=== PATIENT | female | born 1955 | race Caucasian/White ===

== ENCOUNTER → 2017-03-12 | Outpatient (CLI) | payer OTHER ==
[2017-03-12 08:29] LABS: Basophils % (A) 1 %; CH 30.7; CHCM 33.1; Eosinophils # (A) 0.2 k/uL (0-0.7); Eosinophils % (A) 3 %; HCT 45.6 % (34.0-46.0); HDW 2.66; HGB 14.4 gm/dL (11.4-16.0); Luc % (Auto) 1; Lymphocytes % (A) 27 %; MCH 29.4 pg (25.0-35.0); MCHC 31.5 g/dL (31.0-37.0); MCV 93.2 fL (80.0-100.0); Mean Platelet Volume 7.7; Monocytes # (A) 0.3 k/uL (0-1.0); Monocytes % (A) 4 %; Neutrophils # (A) 4.8 k/uL (1.3-7.7); Neutrophils % (A) 65 %; RDW 14.1 % (11.5-15.5); WBC 7.4 k/uL (3.8-10.6); WBC (Perox) 7.49
[2017-03-12 09:06] LABS: ALT 30 U/L (9-52); AST 20 U/L (14-36); Alkaline Phosphatase 83 U/L (38-126); Anion Gap 7 mmol/L; Blood Urea Nitrogen 12 mg/dL (7-17); Calcium 9.2 mg/dL (8.4-10.2); Carbon Dioxide 30 mmol/L (22-30); Chloride 106 mmol/L (98-107); Cholesterol 177 mg/dL (<200); Glucose 90 mg/dL (74-99); HDL Cholesterol 44 mg/dL (40-60); Non-African American GFR(MDRD) >60 (>60 ml/min/1.73 sqM); Potassium 4.7 mmol/L (3.5-5.1); Sodium 143 mmol/L (137-145); Total Bilirubin 0.3 mg/dL (0.2-1.3); Total Protein 6.8 g/dL (6.3-8.2)
[2017-03-12 09:50] LABS: Hepatitis C Virus IgG Ab Negative (Negative); Hepatitis C Virus IgG Index 0.06
--- NOTE | 2017-03-14 08:25 | MM ---
Reason for exam: screening (asymptomatic). Last mammogram was performed 1 year and 1 month ago. History: Patient is postmenopausal and had first child at age 31. Took hormonal contraceptives for 10 years. Physical Findings: A clinical breast exam by your physician is recommended on an annual basis and results should be correlated with mammographic findings. MG 3D Screening Mammo W/Cad Bilateral CC and MLO view(s) were taken. Prior study comparison: February 21, 2016, bilateral MG 3d screening mammo w/cad. December 24, 2014, bilateral MG screening mammo w CAD. The breast tissue is heterogeneously dense. This may lower the sensitivity of mammography. There is chronic nodularity bilaterally. No significant changes when compared with prior studies. ASSESSMENT: Benign, BI-RAD 2 RECOMMENDATION: Routine screening mammogram of both breasts in 1 year.
== END | disposition home or self-care (01) ==
LOC: RADMAMWWP 07:34
PROVIDERS: ATTEND Internal Medicine
DX: Z12.31 Encounter for screening mammogram for malignant neoplasm of breast (principal); Z13.9 Encounter for screening, unspecified; E55.9 Vitamin D deficiency, unspecified; E66.9 Obesity, unspecified
CPT/HCPCS: 86803; 80061; 80053; 84443; 85025; 82306; 77063; 36415; G0202

== ENCOUNTER → 2018-03-29 | Outpatient (CLI) | payer BC ==
[2018-03-29 07:37] LABS: Basophils # (A) 0.1 k/uL (0-0.2); Basophils % (A) 1 %; Eosinophils # (A) 0.3 k/uL (0-0.7); Eosinophils % (A) 4 %; HCT 45.5 % (34.0-46.0); HGB 14.6 gm/dL (11.4-16.0); Lymphocytes # (A) 2.1 k/uL (1.0-4.8); Lymphocytes % (A) 28 %; MCH 28.9 pg (25.0-35.0); MCHC 32.1 g/dL (31.0-37.0); Mean Platelet Volume 7.1; Monocytes # (A) 0.4 k/uL (0-1.0); Monocytes % (A) 5 %; Neutrophils # (A) 4.7 k/uL (1.3-7.7); Neutrophils % (A) 61 %; Platelet Count 256 k/uL (150-450); RBC 5.05 m/uL (3.80-5.40); RDW 13.8 % (11.5-15.5); WBC 7.6 k/uL (3.8-10.6)
[2018-03-29 08:05] LABS: ALT 29 U/L (9-52); AST 20 U/L (14-36); Albumin 3.6 g/dL (3.5-5.0); Alkaline Phosphatase 67 U/L (38-126); Anion Gap 6 mmol/L; Blood Urea Nitrogen 14 mg/dL (7-17); Calcium 9.1 mg/dL (8.4-10.2); Carbon Dioxide 29 mmol/L (22-30); Chloride 106 mmol/L (98-107); Cholesterol 186 mg/dL (<200); Glucose 104 mg/dL (74-99); HDL Cholesterol 45 mg/dL (40-60); LDL Cholesterol,Calculated 117 mg/dL (0-99); Potassium 4.6 mmol/L (3.5-5.1); Sodium 141 mmol/L (137-145); Total Bilirubin 0.5 mg/dL (0.2-1.3); Total Protein 6.8 g/dL (6.3-8.2); Triglycerides 118 mg/dL (<150)
--- NOTE | 2018-04-02 08:44 | MM ---
Reason for exam: screening (asymptomatic). Last mammogram was performed 1 year and 1 month ago. History: Patient is postmenopausal and had first child at age 31. Took hormonal contraceptives for 10 years. Physical Findings: A clinical breast exam by your physician is recommended on an annual basis and results should be correlated with mammographic findings. MG 3D Screening Mammo W/Cad Bilateral CC and MLO view(s) were taken. Prior study comparison: March 12, 2017, bilateral MG 3d screening mammo w/cad. February 21, 2016, bilateral MG 3d screening mammo w/cad. The breast tissue is heterogeneously dense. This may lower the sensitivity of mammography. There is chronic nodularity bilaterally. Asymmetric density lateral posterior left breast appears more defined and incompletely disperses on 3D. ASSESSMENT: Incomplete: need additional imaging evaluation, BI-RAD 0 RECOMMENDATION: Special view mammogram of the left breast. If lesion persists on supplemental views, image directed ultrasound is recommended. [facility] will attempt to contact patient to return for supplemental views and ultrasound if indicated.
== END | disposition home or self-care (01) ==
LOC: RADMAMWWP 07:19
PROVIDERS: ATTEND Internal Medicine
DX: Z12.31 Encounter for screening mammogram for malignant neoplasm of breast (principal); Z00.00 Encounter for general adult medical examination without abnormal findings; N95.1 Menopausal and female climacteric states; E55.9 Vitamin D deficiency, unspecified
CPT/HCPCS: 36415; 77063; 77067; 80053; 80061; 82306; 85025

== ENCOUNTER → 2018-04-05 | Outpatient (CLI) | payer BC ==
--- NOTE | 2018-04-08 07:54 | MM ---
Reason for exam: additional evaluation requested from abnormal screening. Last mammogram was performed less than 1 month ago. History: Patient is postmenopausal and had first child at age 31. Took hormonal contraceptives for 10 years. Physical Findings: Nurse did not find any significant physical abnormalities on exam. MG 3D Work Up W/Cad LT Spot compression CC, spot compression MLO, and ML view(s) were taken of the left breast. Prior study comparison: March 29, 2018, bilateral MG 3d screening mammo w/cad. March 12, 2017, bilateral MG 3d screening mammo w/cad. Nodular density upper outer left breast, 11cm from nipple. These results were verbally communicated with the patient and result sheet given to the patient on 04/05/18. ASSESSMENT: Incomplete: need additional imaging evaluation, BI-RAD 0 RECOMMENDATION: Ultrasound of the left breast.
--- NOTE | 2018-04-08 07:55 | USB ---
Reason for exam: additional evaluation requested from abnormal screening. History: Patient is postmenopausal and had first child at age 31. Took hormonal contraceptives for 10 years. US Breast Workup Limited LT Left limited breast ultrasound including focal area of concern, retroareolar and axilla demonstrates no cystic or solid lesion seen. These results were verbally communicated with the patient and result sheet given to the patient on 04/05/18. ASSESSMENT: Negative, BI-RAD 1 RECOMMENDATION: Return to routine screening mammogram schedule for both breasts.
== END | disposition home or self-care (01) ==
LOC: RADMAMWWP 13:53
PROVIDERS: ATTEND Internal Medicine
DX: R92.8 Other abnormal and inconclusive findings on diagnostic imaging of breast (principal)
CPT/HCPCS: 77061; 77065

== ENCOUNTER → 2018-04-29 | Outpatient (CLI) | payer BC ==
--- NOTE | 2018-04-29 16:12 | XR ---
Left foot and left calcaneus HISTORY: Pain, bursitis, Achilles bursitis or tendinitis 2 views of the left foot and 2 views of the left calcaneus submitted. There is a plantar calcaneus spur. Bone mineralization and alignment are maintained. Degenerative rohan nge present at the first metatarsophalangeal joint. IMPRESSION: Plantar calcaneal spur.
--- NOTE | 2018-04-29 16:28 | US ---
EXAMINATION TYPE: Ultrasound MSK left ankle, Achilles tendon DATE OF EXAM: 04/29/2018 COMPARISON: NONE CLINICAL HISTORY: 62-year-old female M76.62 Achilles bursitis or tendinitis,. TECHNIQUE: Multiple sonographic images of the Achilles tendon were obtained. FINDINGS: There is moderate thickening and heterogeneity of the distal Achilles tendon with bony irregularity a nd increased adenopathy at the Achilles insertion. Tiny 5 mm calcification involving the insertional fibers is also noted. There is hyperemia involving some of the more hypoechoic regions with suggestio n of a tiny 2 to 3 mm intrasubstance tear. No large or retracted tear is identified. Mild synovial p roliferation and hyperemia in the retrocalcaneal bursa. IMPRESSION: 1. Moderate insertional Achilles tendinosis with hyperemia suggesting active inflammation. A tiny 2 t o 3 mm intrasubstance tear may be present. No sizable tear is seen. 2. Given a 5 mm calcification involving the insertional fibers and mild synovitis of the retrocalcane al bursa, correlate to exclude gout as a possible etiology.
== END | disposition home or self-care (01) ==
LOC: RADUSWWP 10:40
PROVIDERS: ATTEND Podiatrist Primary Podiatric Medicine
DX: M76.62 Achilles tendinitis, left leg (principal); M65.872 Other synovitis and tenosynovitis, left ankle and foot; M77.32 Calcaneal spur, left foot

== ENCOUNTER → 2019-04-23 | Outpatient (CLI) | payer BC ==
[2019-04-23 08:35] LABS: ALT 27 U/L (9-52); AST 24 U/L (14-36); African American GFR (CKD) >90 (>60 ml/min/1.73 sqM); Albumin 4.1 g/dL (3.5-5.0); Alkaline Phosphatase 75 U/L (38-126); Anion Gap 9 mmol/L; Blood Urea Nitrogen 16 mg/dL (7-17); Calcium 9.7 mg/dL (8.4-10.2); Carbon Dioxide 31 mmol/L (22-30); Chloride 102 mmol/L (98-107); Cholesterol 195 mg/dL (<200); Glucose 104 mg/dL (74-99); HDL Cholesterol 44 mg/dL (40-60); LDL Cholesterol,Calculated 126 mg/dL (0-99); Potassium 4.6 mmol/L (3.5-5.1); Sodium 142 mmol/L (137-145); Total Bilirubin 0.8 mg/dL (0.2-1.3); Total Protein 7.5 g/dL (6.3-8.2); Triglycerides 124 mg/dL (<150)
[2019-04-23 08:38] LABS: Basophils # (A) 0.1 k/uL (0-0.2); Basophils % (A) 1 %; Eosinophils # (A) 0.2 k/uL (0-0.7); Eosinophils % (A) 2 %; HCT 48.5 % (34.0-46.0); HGB 14.9 gm/dL (11.4-16.0); Lymphocytes # (A) 2.2 k/uL (1.0-4.8); Lymphocytes % (A) 28 %; MCHC 30.8 g/dL (31.0-37.0); MCV 94.1 fL (80.0-100.0); Mean Platelet Volume 7.5; Monocytes # (A) 0.4 k/uL (0-1.0); Monocytes % (A) 5 %; Neutrophils # (A) 4.9 k/uL (1.3-7.7); Neutrophils % (A) 62 %; Platelet Count 301 k/uL (150-450); RBC 5.16 m/uL (3.80-5.40); RDW 13.6 % (11.5-15.5); WBC 7.9 k/uL (3.8-10.6)
[2019-04-23 11:04] LABS: Appearance,Urine Cloudy (Clear); Bacteria,Urine Rare /hpf; Bilirubin,Urine Negative (Negative); Blood,Urine Negative (Negative); Color,Urine Yellow; Glucose,Urine (UA) Negative (Negative); Ketones,Urine Negative (Negative); Leukocyte Esterase,Urine Negative (Negative); Mucus,Urine Rare /hpf; Nitrite,Urine Negative (Negative); PH, Urine 5.5 (5.0-8.0); Protein,Urine Negative (Negative); RBC,Urine 2 /hpf (0-5); Specific Gravity,Urine 1.019 (1.001-1.035); Squamous Epithelial Cell,Urine 33 /hpf (0-4); Urobilinogen,Urine <2.0 mg/dL (<2.0); WBC,Urine 3 /hpf (0-5)
--- NOTE | 2019-04-24 09:17 | MM ---
Reason for exam: screening (asymptomatic). Last mammogram was performed 1 year and 1 month ago. History: Patient is postmenopausal and had first child at age 31. Took hormonal contraceptives for 10 years. Physical Findings: A clinical breast exam by your physician is recommended on an annual basis and results should be correlated with mammographic findings. MG 3D Screening Mammo W/Cad Bilateral CC and MLO view(s) were taken. Prior study comparison: April 05, 2018, left breast MG 3d work up w/cad LT. March 29, 2018, bilateral MG 3d screening mammo w/cad. The breast tissue is heterogeneously dense. This may lower the sensitivity of mammography. Finding: There are grouped/clustered calcifications in the middle, posterior, central position of the left breast. There is a chronic nodularity bilaterally. New finding and increase in number of calcifications since April 05, 2018 and March 29, 2018. ASSESSMENT: Incomplete: need additional imaging evaluation, BI-RAD 0 RECOMMENDATION: Special view mammogram of the left breast. [facility] will attempt to contact patient to return for supplemental views.
== END | disposition home or self-care (01) ==
LOC: RADMAMWWP 06:51
PROVIDERS: ATTEND Internal Medicine
DX: Z12.31 Encounter for screening mammogram for malignant neoplasm of breast (principal); Z00.00 Encounter for general adult medical examination without abnormal findings; E55.9 Vitamin D deficiency, unspecified; E66.9 Obesity, unspecified
CPT/HCPCS: 36415; 77063; 77067; 80053; 80061; 81001; 82306; 84443; 85025

== ENCOUNTER → 2019-05-12 | Outpatient (CLI) | payer BC ==
--- NOTE | 2019-05-12 11:30 | MM ---
Reason for exam: additional evaluation requested from abnormal screening. Last mammogram was performed 1 month ago. History: Patient is postmenopausal and had first child at age 31. Took hormonal contraceptives for 10 years. Physical Findings: Nurse did not find any significant physical abnormalities on exam. MG 3D Work Up W/Cad LT CC with magnification, LM with magnification, and LM view(s) were taken of the left breast. Prior study comparison: April 23, 2019, bilateral MG 3d screening mammo w/cad. April 05, 2018, left breast MG 3d work up w/cad LT. The breast tissue is heterogeneously dense. This may lower the sensitivity of mammography. Finding: There are indeterminate calcifications in the upper quadrant, central position of the left breast. These results were verbally communicated with the patient and result sheet given to the patient on 05/12/19. ASSESSMENT: Suspicious, BI-RAD 4 RECOMMENDATION: Stereotactic core biopsy of the left breast. Called Dr. Abarca's office with mammographic findings and has scheduled an appointment for the patient for 06/20/19 at 1:[address] Burrell. Biopsy scheduled for 06/27/19 at 8:00. PRELIMINARY REPORT CALLED AND FAXED TO DR. BURRELL ON 05/12/19.
== END | disposition home or self-care (01) ==
LOC: RADMAMWWP 08:46
PROVIDERS: ATTEND Internal Medicine
DX: R92.8 Other abnormal and inconclusive findings on diagnostic imaging of breast (principal)
CPT/HCPCS: 77061; 77065

== ENCOUNTER → 2019-06-20 | Outpatient (CLI) | payer MEDICARE ==
[2019-06-20 13:17] VITALS: BP 152/87; PULSE 68; RESP 18; TEMP 98
--- NOTE | 2019-06-20 13:52 | P.GSHP ---
History of Present Illness H&P Date: 06/20/19 Chief Complaint: mammographic abnormality left breast Yary is a 64-year-old white female who presents for breast examination. She is seen in consultation for Dr. Giovanny Hendricks. She underwent a bilateral mammogram on [id number] this revealed some calcifications in the left breast for which additional views were recommended. Additional views were obtained on 2818. This revealed indeterminate calcifications in the upper quadrant central position of the left breast. These were considered suspicious BIRADS 4 and stereotactic core biopsy was recommended. Patient herself does not feel any masses or nodules for which she is concerned in either breast. No nipple discharge or skin changes. No recent history of trauma or infection in the breast. Family History: paternal grandmother: colon cancer Hormonal History: menarche: 10 , breast fed: no, age at : 31 menopause: 47 BCP: 3 years, hormones: none Past Surgical History: gallbladder rhinoplasty Medical History: none Social History: smoke: none alcohol: wine weekly drugs: none - Constitutional Constitutional: Denies chills, Denies fever - EENT Comment: retinal surgery, floater Eyes: denies blurred vision, denies pain Ears: deny: decreased hearing, tinnitus Ears, nose, mouth and throat: Denies headache, Denies sore throat - Breasts Breasts: bilateral: as per HPI - Cardiovascular Cardiovascular: Denies chest pain, Denies shortness of breath - Respiratory Respiratory: Denies cough, Denies 7 - Gastrointestinal Gastrointestinal: Denies abdominal pain, Denies diarrhea, Denies nausea, Denies vomiting - Genitourinary (Female) Genitourinary: Denies dysuria, Denies hematuria - Menstruation Menstruation: Reports postmenopausal - Musculoskeletal Musculoskeletal: Denies myalgias - Integumentary Integumentary: Denies pruritus, Denies rash - Neurological Neurological: Denies numbness, Denies weakness - Psychiatric Psychiatric: Denies anxiety, Denies depression - Endocrine Endocrine: Denies fatigue, Denies weight change - Hematologic/Lymphatic Comment: none - Allergic/Immunologic Allergic/Immunologic: Reports as per HPI Past Medical History History of Any Multi-Drug Resistant Organisms: None Reported Smoking Status: Never smoker Medications and Allergies Home Medications Medication Instructions Recorded Confirmed Type Calcium Carbonate [Calcium] 1,200 mg PO DAILY 06/20/19 06/20/19 History Cholecalciferol (Vitamin D3) 2,000 unit PO DAILY 06/20/19 06/20/19 History [Vitamin D3] Omeprazole [PriLOSEC] 10 mg PO DAILY 06/20/19 06/20/19 History Turmeric Root Extract [Turmeric] 1,000 mg PO DAILY 06/20/19 06/20/19 History Allergies Allergy/AdvReac Type Severity Reaction Status Date / Time No Known Allergies Allergy Verified 06/20/19 13:18 Surgical - Exam Vital Signs Temp Pulse Resp BP Pulse Ox 98.0 F 68 18 152/87 98 06/20/19 13:13 06/20/19 13:13 06/20/19 13:13 06/20/19 13:13 06/20/19 13:13 BMI 34.1 - General well developed, well nourished, no distress - Eyes normal ocular movement - ENT normal pinna, no hearing loss, no congestion - Neck no masses, trachea midline, no lymphadectomy - Respiratory normal expansion, normal respiratory effort, clear to auscultation - Cardiovascular Rhythm: regular Heart Sounds: normal: S1, S2 - Abdomen Abdomen: soft, non tender, no guarding, no rigid, no rebound - Integumentary normal turgor - Neurologic no disoriented, no combative - Musculoskeletal normal gait, normal posture - Psychiatric oriented to time, oriented to person, oriented to place, speech is normal, memory intact breast exam: Bra 44D grade 3 ptosis right breast: Multiple positional exam no dominant masses or nodules of concern, no nipple discharge of concern Right axilla: No adenopathy of concern Left breast: Multi-positional exam left breast is slightly larger than the right breast, there is increased fullness in the upper quadrant area without a discrete mass Left axilla: No adenopathy of concern Results mammogram results reviewed Assessment and Plan Assessment: Impression: 1. Normal mammogram left breast 2. Fibrocystic breast changes 3. Asymmetry of the breast left slightly larger than the right 4. Fullness left breast upper quadrant area 5. Family history of cancer, paternal grandmother Plan: 1. Sterotactic core biopsy left breast 2. Depending on results of stereotactic core biopsy may consider FNA of the area of fullness in the left breast 3. Valium pre-op as patient anxious Risk and benefits of procedure discussed with the patient she wishes to proceed and this will be performed in the near future Encounter 30 minutes, > 50% of time planning and counselling Time with Patient: Greater than 30
== END ==
LOC: WWCWWP 12:39
PROVIDERS: ATTEND Surgery
DX: Z53.9 Procedure and treatment not carried out, unspecified reason (principal)

== ENCOUNTER → 2019-06-27 | Day surgery (SDC) | payer MEDICARE ==
[2019-06-27 07:25] VITALS: RESP 16; TEMP 97.8
--- NOTE | 2019-06-27 08:56 | P.PCN ---
Date of Procedure: 06/27/19 Preoperative Diagnosis: Microcalcifications of concern upper outer quadrant of the left breast Postoperative Diagnosis: Same Procedure(s) Performed: Left breast stereotactic core biopsy Anesthesia: local Surgeon: Rhiannon Burrell Estimated Blood Loss (ml): 0 Pathology: other (Breast tissue with microcalcifications noted on radiograph specimen) Condition: stable Disposition: same day Indications for Procedure: Indeterminate microcalcifications upper Outer quadrant left breast Operative Findings: Microcalcifications in specimen Description of Procedure: The patient is a 64-year-old white female who was noted on a mammogram to have indeterminate microcalcifications in the upper outer quadrant the central position of the left breast. It was recommended she undergo a stereotactic core biopsy. Risks and benefits of the procedure were discussed with the patient and she wished to proceed. The patient was taken to the stereotactic core biopsy removed and positioned on the lower abdomen table. A supervisor slashing department film was obtained and the area of concern was identified. This was done from a medial to lateral approach. The lesion was targeted. The breast was prepped using Betadine. 25 mL of 1% lidocaine 15 of which had epinephrine were used to anesthetize the area of concern. The needle was driven to the correct coordinates. The needle was fired. Post fire films revealed the needle to be in the correct location. 10 core biopsies were obtained. 3 at the 6 o'clock position. Radiograph of the specimen revealed the calcifications of concern had been sampled. A secure-willis Top-clothes marker was placed. Radiograph revealed the marker was in the correct location. The patient tolerated the procedure in stable condition. The specimen was sent for pathology. The patient will follow with Dr. Toussaint next week.
[2019-06-27 09:24] VITALS: BP 115/71; PULSE 61
--- NOTE | 2019-06-27 12:45 | MM ---
EXAMINATION TYPE: MG stereo VAD BX LT DATE OF EXAM: 06/27/2019 COMPARISON: 05/12/2019 CLINICAL HISTORY: Indeterminate left breast calcifications for which left breast stereotactic guided biopsy was recommended. TECHNIQUE: Stereotactic guided core biopsy of left breast. FINDINGS: The procedure of stereotactic guided core biopsy was explained to the patient. Benefits, alternatives, and risks were discussed. An informed consent was then obtained. Preprocedural timeout was performed. The shortness pathway for biopsy was chosen to approach the 4 mm calcifications in the upper inner quadrant of the left breast. Shortness pathway was medial to lateral approach. I performed the localization, then surgeon, Dr. Norbert Baltazar performed the remainder of the procedure. A vacuum assisted biopsy gun was used to obtain multiple core samples. The patient tolerated the procedure well without any immediate complication. The patient was kept in the radiology department for short stay after the procedure and then discharged home in stable condition. Targeted calcifications are identified in specimen mammogram. Post biopsy mammogram shows the clip to 5 cm lateral to the expected position relative to the targeted area of concern on the preprocedure images. IMPRESSION: SUCCESSFUL, UNCOMPLICATED STEREOTACTIC GUIDED CORE BIOPSY OF AN INDETERMINATE 4 MM GROUP OF CALCIFICATIONS IN THE UPPER INNER QUADRANT OF THE LEFT BREAST, FULL PATHOLOGY RESULTS TO FOLLOW. BIOPSY MARKER MIGRATION IS NOTED. Pathology Results: Benign LEFT BREAST LESION, NEEDLE CORE BIOPSIES: Benign adipose tissue and breast parenchyma with fibroadenomatoid changes and prominent coarse intraductal mineralizations. Recommendation Follow up mammogram of the left breast in 6 months. HANNA
== END ==
LOC: RADMAMWWP 07:02
PROVIDERS: ATTEND Surgery
DX: D24.2 Benign neoplasm of left breast (principal)
CPT/HCPCS: 88305; 19081; A4648; J2001

== ENCOUNTER → 2019-07-03 | Outpatient (CLI) | payer MEDICARE ==
[2019-07-03 09:11] VITALS: BP 153/88; PULSE 84; RESP 18; TEMP 98
--- NOTE | 2019-07-03 09:41 | P.PN ---
Subjective Progress Note Date: 07/03/19 Principal diagnosis: Yary is a 64-year-old white female status post stereotactic core biopsy and [id number]. Pathology revealed benign adipose tissue and breast parenchyma with fibroadenomatoid changes and prominent course intraductal mineralization's. No evidence of cancer or atypia was seen. The patient states tolerated the procedure in stable condition. She has no complaints at this time. Objective - Vital Signs Vital signs: Vital Signs Temp 98.0 F 07/03/19 09:06 Pulse 84 07/03/19 09:06 Resp 18 07/03/19 09:06 BP 153/88 07/03/19 09:06 Pulse Ox 100 07/03/19 09:06 Intake & Output 07/02/19 07/03/19 07/03/19 18:59 06:59 18:59 Weight 92.986 kg - Exam BMI 34.1 - Constitutional General appearance: Present: obese - EENT Eyes: Present: EOMI ENT: Present: hearing grossly normal - Neck Neck: Present: normal ROM - Respiratory Respiratory: bilateral: CTA - Cardiovascular Rhythm: regular Heart sounds: normal: S1, S2 - Integumentary Integumentary Comment(s): biopsy site left breast upper inner quadrant area, clean and dry, no evidence of infection, no hematoma Integumentary: Present: normal turgor - Musculoskeletal Musculoskeletal: Present: gait normal - Psychiatric Psychiatric: Present: A&O x's 3, appropriate affect, intact judgment & insight Assessment and Plan Assessment: impression: 1. Benign stereotactic core biopsy left breast Plan: 1. Repeat left breast mammogram and physician exam in 6 months Cc: Dr. Abarca encounter: approximately 15 minutes, > 50% in planning and scheduling. Time with Patient: Less than 30
== END ==
LOC: WWCWWP 08:46
PROVIDERS: ATTEND Surgery
DX: Z53.9 Procedure and treatment not carried out, unspecified reason (principal)

== ENCOUNTER → 2019-12-05 | Outpatient (CLI) | payer MEDICARE ==
--- NOTE | 2019-12-09 07:48 | MM ---
Reason for exam: follow-up at short interval from prior study. Last mammogram was performed 7 months ago. History: Patient is postmenopausal and had first child at age 31. Benign MG stereo VAD BX LT of the left breast, June 27, 2019. Took hormonal contraceptives for 10 years. Physical Findings: Nurse did not find any significant physical abnormalities on exam. MG 3D Diag Mammo W/Cad LT CC and MLO view(s) were taken of the left breast. Prior study comparison: May 12, 2019, left breast MG 3d work up w/cad LT. April 23, 2019, bilateral MG 3d screening mammo w/cad. The breast tissue is heterogeneously dense. This may lower the sensitivity of mammography. Benign appearing calcifications in the left breast. Left upper outer quadrant middle depth focal asymmetry improves on additional views. Precautionary 6 month follow up recommended. Left post biopsy change. Left biopsy marker migration is again noted. No new suspicious calcifications. These results were verbally communicated with the patient and result sheet given to the patient on 12/05/19. ASSESSMENT: Probably benign, BI-RAD 3 RECOMMENDATION: Follow-up diagnostic mammogram of both breasts in 6 months. Back on schedule.
== END | disposition home or self-care (01) ==
LOC: RADMAMWWP 14:09
PROVIDERS: ATTEND Surgery
DX: R92.8 Other abnormal and inconclusive findings on diagnostic imaging of breast (principal)
CPT/HCPCS: 77065; G0279; 77061

== ENCOUNTER → 2019-12-11 | Outpatient (CLI) | payer MEDICARE ==
[2019-12-11 09:46] VITALS: BP 133/77; PULSE 86; RESP 18; TEMP 98.3
--- NOTE | 2019-12-11 10:34 | P.PN ---
Subjective Progress Note Date: 12/11/19 Principal diagnosis: fibrocystic breast changes Yary is a 64-year-old white female who presents for breast examination. She underwent a bilateral mammogram in April 2019 this revealed some calcifications in the left breast for which additional views were recommended. Additional views were obtained on . This revealed indeterminate calcifications in the upper quadrant central position of the left breast. These were considered suspicious BIRADS 4 and stereotactic core biopsy was recommended. A stero biopsy was done on 06-27-19 which was benign. There is no complaints related to her breast. A recent mammogram was performed on 12-05-19 of the left breast. This revealed benign-appearing calcifications. Left upper outer quadrant middle depth focal asymmetry improved on additional views. Precautionary six-month follow-up was recommended. Bilateral diagnostic mammogram in 6 months. Family History: paternal grandmother: colon cancer Hormonal History: menarche: 10 , breast fed: no, age at : 31 menopause: 47 BCP: 3 years, hormones: none Past Surgical History: gallbladder rhinoplasty Stero biopsy of the left breast Medical History: none Social History: smoke: none alcohol: wine weekly drugs: none - Constitutional Constitutional: Denies chills, Denies fever - EENT Comment: retinal surgery, floater Eyes: denies blurred vision, denies pain Ears: deny: decreased hearing, tinnitus Ears, nose, mouth and throat: Denies headache, Denies sore throat - Breasts Breasts: bilateral: as per HPI - Cardiovascular Cardiovascular: Denies chest pain, Denies shortness of breath - Respiratory Respiratory: Denies cough - Gastrointestinal Gastrointestinal: Denies abdominal pain, Denies diarrhea, Denies nausea, Denies vomiting - Genitourinary (Female) Genitourinary: Denies dysuria, Denies hematuria - Menstruation Menstruation: Reports postmenopausal - Musculoskeletal Musculoskeletal: Denies myalgias - Integumentary Integumentary: Denies pruritus, Denies rash - Neurological Neurological: Denies numbness, Denies weakness - Psychiatric Psychiatric: Denies anxiety, Denies depression - Endocrine Endocrine: Denies fatigue, Denies weight change - Hematologic/Lymphatic Comment: none - Allergic/Immunologic Allergic/Immunologic: seasonal Objective - Vital Signs Vital signs: Vital Signs Temp 98.3 F 12/11/19 09:42 Pulse 86 05/28/20 09:42 Resp 18 12/11/19 09:42 BP 133/77 12/11/19 09:42 Pulse Ox 96 12/11/19 09:42 Intake & Output 12/10/19 12/11/19 12/11/19 18:59 06:59 18:59 Weight 97.522 kg - Exam BMI 35.2 - Constitutional General appearance: Present: average body habitus - EENT Eyes: Present: EOMI ENT: Present: hearing grossly normal - Respiratory Respiratory: bilateral: CTA - Cardiovascular Rhythm: regular Heart sounds: normal: S1, S2 - Gastrointestinal General gastrointestinal: Present: normal bowel sounds, soft - Integumentary Integumentary: Present: normal turgor - Musculoskeletal Musculoskeletal: Present: gait normal - Psychiatric Psychiatric: Present: A&O x's 3, appropriate affect, intact judgment & insight - Additional findings Additional findings: breast exam: BRA: 42C inspection: no nipple inversion, ptosis grade 2 Palpation: Right breast: Multiple positional exam no dominant masses or nodules of concern, fibrocystic changes Right axilla: No adenopathy of concern Left breast: Multi-positional exam no dominant masses or nodules of concern, fibrocystic changes, fullness upper-outer quadrant area no dominant mass Left axilla: No adenopathy of concern Assessment and Plan Assessment: Impression: 1. Fibrocystic breast changes 2. Fullness left breast upper outer quadrant most likely fibrocystic 3. Recent left breast mammogram no discrete lesions of concern benign BIRADS 3 Plan: 1. Repeat bilateral mammogram in 6 months 2. Left breast ultrasound upper outer quadrant area secondary to palpable fullness CC: DR. Giovanny Abarca encounter 20 minutes, > 50% of time in planning and counselling Time with Patient: Less than 30
== END | disposition home or self-care (01) ==
LOC: WWCWWP 09:29
PROVIDERS: ATTEND Surgery
DX: Z53.9 Procedure and treatment not carried out, unspecified reason (principal)

== ENCOUNTER → 2019-12-16 | Outpatient (CLI) | payer MEDICARE ==
--- NOTE | 2019-12-18 09:19 | USB ---
Reason for exam: clinical finding. History: Patient is postmenopausal and had first child at age 31. Benign MG stereo VAD BX LT of the left breast, June 27, 2019. Took hormonal contraceptives for 10 years. Physical Findings: See breast exam from 12/05/19. US Breast Limited LT Left limited breast ultrasound including focal area of concern, retroareolar and axilla demonstrates no cystic or solid lesion seen. No suspicious sonographic finding. These results were verbally communicated with the patient and result sheet given to the patient on 12/16/19. ASSESSMENT: Negative, BI-RAD 1 RECOMMENDATION: Return to routine screening mammogram schedule for both breasts.
== END | disposition home or self-care (01) ==
LOC: RADUSWWP 12:40
PROVIDERS: ATTEND Surgery
DX: R92.8 Other abnormal and inconclusive findings on diagnostic imaging of breast (principal)

== ENCOUNTER → 2019-12-26 | Outpatient (CLI) | payer MEDICARE ==
[2019-12-26 14:20] VITALS: BP 134/82; PULSE 63; RESP 18; TEMP 97.7
--- NOTE | 2019-12-26 14:37 | P.PN ---
Progress Note - Text Progress Note Date: 12/26/19 Yary is a 64-year-old white female who underwent a breast examination and 17614. At that time there was some question of some fullness in the upper outer quadrant of her left breast. She had a bilateral mammogram and 83725 which revealed calcifications in the left breast for which additional views were recommended. This was obtained on 1020 819 in the stereo biopsy was recommended. Stereotactic biopsy was done in 06/1319 which was benign adipose tissue with intraductal mineralization's present. [place] [address] which was benign however precautionary six-month follow-up was recommended. This revealed benign-appearing calcifications in the left [address]. Left upper quadrant middle depth focal asymmetry improved on additional views. An six-month follow-up of both breasts was recommended. On her recent breast exam was felt that there was some increased fullness in the left breast in the upper quadrant ultrasound was recommended. Ultrasound was performed and which was benign BIRADS 1. The patient has no complaints at this time. She will have a repeat bilateral mammogram and physician exam in 6 months. cc: Dr. Abarca encounter 10 minutes
== END | disposition home or self-care (01) ==
LOC: WWCWWP 14:00
PROVIDERS: ATTEND Surgery
DX: Z53.9 Procedure and treatment not carried out, unspecified reason (principal)

== ENCOUNTER → 2020-06-08 | Outpatient (CLI) | payer MEDICARE ==
[2020-06-08 09:17] LABS: HCT 45.6 % (34.0-46.0); MCH 30.3 pg (25.0-35.0); Mean Platelet Volume 7.2; Platelet Count 264 k/uL (150-450); RBC 4.96 m/uL (3.80-5.40); RDW 13.5 % (11.5-15.5); WBC 6.9 k/uL (3.8-10.6)
[2020-06-08 16:00] LABS: African American GFR (CKD) 77.2 (60.0-200.0); Albumin 3.9 g/dL (3.80-4.90); Albumin/Globulin Ratio 1.5 (1.60-3.17); Anion Gap 6.2 mmol/L (4.00-12.00); BUN/Creat Ratio 18.89 Ratio (12.00-20.00); Calcium 9.4 mg/dL (8.7-10.3); Carbon Dioxide 29.8 mmol/L (21.6-31.8); Chol/HDL Ratio 3.96; Globulin 2.6 g/dL (1.6-3.3); LDL Cholesterol,Calculated 120.6 mg/dL (0.0-131.0); Non-African American GFR(CKD) 66.6 (60.0-200.0); Potassium 4.8 mmol/L (3.5-5.5); Total Bilirubin 0.5 mg/dL (0.2-1.2); Total Protein 6.5 g/dL (6.2-8.2); VLDL Calculation 18.4 mg/dL (5.00-40.00)
== END | disposition home or self-care (01) ==
LOC: LABWHC1 08:22
PROVIDERS: ATTEND Family Medicine
DX: Z00.01 Encounter for general adult medical examination with abnormal findings (principal)
CPT/HCPCS: 36415; 80053; 80061; 85027

== ENCOUNTER → 2020-06-08 | Outpatient (CLI) | payer MEDICARE ==
--- NOTE | 2020-06-08 10:33 | MM ---
Reason for exam: additional evaluation requested from prior study. Last mammogram was performed 6 months ago. History: Patient is postmenopausal and had first child at age 31. Benign MG stereo VAD BX LT of the left breast, June 27, 2019. Took hormonal contraceptives for 10 years. Physical Findings: Nurse did not find any significant physical abnormalities on exam. MG 3D Diag Mammo W/Cad MARCELINA Bilateral CC and MLO view(s) were taken. Spot compression CC and ML view(s) were taken of the left breast. Prior study comparison: December 05, 2019, left breast MG 3d diag mammo w/cad LT. May 12, 2019, left breast MG 3d work up w/cad LT. There is chronic nodularity bilaterally. Lateral asymmetric density left CC view at a middle depth incompletely disperses on spot 3D. However, no correlate is seen on the other views. These results were verbally communicated with the patient and result sheet given to the patient on 06/11/20. ASSESSMENT: Incomplete: need additional imaging evaluation, BI-RAD 0 RECOMMENDATION: Ultrasound of the left breast. (upper outer quadrant)
--- NOTE | 2020-06-08 10:35 | USB ---
Reason for exam: additional evaluation requested from abnormal screening. History: Patient is postmenopausal and had first child at age 31. Benign MG stereo VAD BX LT of the left breast, June 27, 2019. Took hormonal contraceptives for 10 years. US Breast Limited LT Left limited breast ultrasound including focal area of concern, retroareolar and axilla demonstrates a 0.6 x 0.4 x 0.5cm oval, hypoechoic lesion at 2 o'clock. Not seen 6 months ago. Biopsy recommended. May correspond to the mammographic finding. Scanned 12-3 o'clock. These results were verbally communicated with the patient and result sheet given to the patient on 06/08/20. ASSESSMENT: Suspicious, BI-RAD 4 RECOMMENDATION: Ultrasound core biopsy of the left breast. Called office with mammographic findings and has scheduled an appointment for the patient for 06/24/20 at 12:[address] Burrell. Biopsy scheduled for 06/16/20 at 1:00. PRELIMINARY REPORT CALLED AND FAXED TO DR. BURRELL ON 06/08/20.
== END | disposition home or self-care (01) ==
LOC: RADMAMWWP 08:25
PROVIDERS: ATTEND Surgery
DX: R92.8 Other abnormal and inconclusive findings on diagnostic imaging of breast (principal)
CPT/HCPCS: 77066; 76642; G0279; 77062

== ENCOUNTER → 2020-06-16 | Day surgery (SDC) | payer MEDICARE ==
[2020-06-16 12:23] VITALS: TEMP 98
[2020-06-16 13:37] VITALS: BP 107/70; PULSE 65; RESP 18
--- NOTE | 2020-06-16 14:01 | USB ---
Ultrasound-guided breast cyst aspiration HISTORY: Abnormal left mammogram Following informed consent the skin overlying a suitable path to the 2:00 breast cyst was localized w ith ultrasound and the overlying skin prepped and draped. Lidocaine used for local anesthesia. 22-gau ge needle was advanced under ultrasound guidance and the cyst was aspirated and collapsed. No evident specimen. Hemostasis achieved. Patient describes some dizziness, transient vasovagal episode was ramona ated conservatively and resolved spontaneously. IMPRESSION: Status post ultrasound guided left breast cyst aspiration, follow-up breast ultrasound so und in 6 months.
== END ==
LOC: RADUSWWP 11:54
PROVIDERS: ATTEND Surgery
DX: N60.02 Solitary cyst of left breast (principal)
CPT/HCPCS: 76942; 19000; J2001

== ENCOUNTER → 2020-12-16 | Outpatient (CLI) | payer MEDICARE | END | disposition home or self-care (01) | LOC: RADUSWWP 08:43 | PROVIDERS: ATTEND Surgery | DX: Z53.9 Procedure and treatment not carried out, unspecified reason (principal) ==

== ENCOUNTER → 2020-12-23 | Outpatient (CLI) | payer MEDICARE ==
[2020-12-23 13:57] VITALS: BP 134/83; PULSE 63; RESP 16; TEMP 97.7
--- NOTE | 2020-12-23 14:08 | P.PN ---
Subjective Progress Note Date: 12/23/20 Principal diagnosis: fibrocystic breast changes Yary is a 65-year-old white female who presents for breast examination. She underwent a bilateral mammogram in April 2019 this revealed some calcifications in the left breast for which additional views were recommended. Additional views were obtained on . This revealed indeterminate calcifications in the upper quadrant central position of the left breast. These were considered suspicious BIRADS 4 and stereotactic core biopsy was recommended. She underwent a stereo biopsy and 250576 this revealed benign adipose tissue and prominent course intraductal mineralization's were present in the specimen. This was felt to be concordant. The patient then had a bilateral mammogram in June 08 and an ultrasound was recommended of the left breast no lesions of concern were noted in the right breast. On ultrasound there was a cystic lesion for which aspiration/biopsy was recommended. This was attempted on and no evidence specimen was present. The patient was then recommended to undergo an ultrasound of the left breast in 6 months. This was performed and 6306 and felt to be benign. Follow-up in 6 months. Patient herself does not feel any masses or nodules for which she is concerned in either breast. No nipple discharge or skin changes. No recent history of trauma or infection in the breast. The patient does not feel any new lumps masses or nodules of concern in either breast. She is not complaining of any breast pain of concern. She is not complaining of any nipple discharge or skin changes. Family History: paternal grandmother: colon cancer Hormonal History: menarche: 10 , breast fed: no, age at : 31 menopause: 47 BCP: 3 years, hormones: none Past Surgical History: gallbladder rhinoplasty Medical History: none Social History: smoke: none alcohol: wine weekly drugs: none - Constitutional Constitutional: Denies chills, Denies fever - EENT Comment: retinal surgery, floater Eyes: denies blurred vision, denies pain Ears: deny: decreased hearing, tinnitus Ears, nose, mouth and throat: Denies headache, Denies sore throat - Breasts Breasts: bilateral: as per HPI - Cardiovascular Cardiovascular: Denies chest pain, Denies shortness of breath - Respiratory Respiratory: Denies cough, - Gastrointestinal Gastrointestinal: Denies abdominal pain, Denies diarrhea, Denies nausea, Denies vomiting - Genitourinary (Female) Genitourinary: Denies dysuria, Denies hematuria - Menstruation Menstruation: Reports postmenopausal - Musculoskeletal Musculoskeletal: Denies myalgias - Integumentary Integumentary: Denies pruritus, Denies rash - Neurological Neurological: Denies numbness, Denies weakness - Psychiatric Psychiatric: Denies anxiety, Denies depression - Endocrine Endocrine: Denies fatigue, Denies weight change - Hematologic/Lymphatic Comment: none - Allergic/Immunologic Allergic/Immunologic: Reports as per HPI Objective - Vital Signs Vital signs: Intake & Output 12/22/20 12/23/20 12/23/20 18:59 06:59 18:59 Weight 95.254 kg - Exam BMI 34.4 - Constitutional General appearance: Present: cooperative - EENT Eyes: Present: EOMI ENT: Present: hearing grossly normal - Neck Neck: Present: normal ROM - Respiratory Respiratory: bilateral: CTA - Cardiovascular Rhythm: regular Heart sounds: normal: S1, S2 - Gastrointestinal General gastrointestinal: Present: soft - Integumentary Integumentary: Present: normal turgor - Musculoskeletal Musculoskeletal: Present: gait normal - Psychiatric Psychiatric: Present: A&O x's 3, appropriate affect, intact judgment & insight - Additional findings Additional findings: Breast exam: BRA 44D inspection: There is prominence on the sternal area of the left chest wall which is a palpable fullness, bilateral grade 3 ptosis Palpation: Right breast: Multiple positional exam fibrocystic changes, no dominant masses or nodules of concern Right axilla: No adenopathy of concern Left breast: Fibrocystic changes increased prominence upper outer quadrant area with no discrete mass Left axilla: No adenopathy of concern Assessment and Plan Assessment: Impression: 1. Asymmetric breasts left breast slightly larger than right breast 2. Fibrocystic breast changes 3. Fullness over the sternal area greatest on the left chest Plan: 1. MRI chest to evaluate fullness over the sternum on the left 2. Repeat bilateral mammogram in 6 months 3. Patient to keep close surveillance on the left breast upper outer quadrant of this changes she will call us sooner at this time there is nothing to warrant a biopsy Cc: Dr. Mohamud
== END ==
LOC: WWCWWP 13:19
PROVIDERS: ATTEND Surgery
DX: N60.11 Diffuse cystic mastopathy of right breast (principal); N60.12 Diffuse cystic mastopathy of left breast; N64.89 Other specified disorders of breast

== ENCOUNTER → 2021-01-04 | Outpatient (CLI) | payer MEDICARE ==
[2021-01-04 13:56] LABS: African American GFR (CKD) >90 (>60 ml/min/1.73 sqM); Blood Urea Nitrogen 15 mg/dL (7-17); Non-African American GFR(CKD) 88 (>60 ml/min/1.73 sqM)
--- NOTE | 2021-01-04 15:44 | CT ---
EXAMINATION TYPE: CT chest w con DATE OF EXAM: 01/04/2021 COMPARISON: None HISTORY: Fullness over sternal area CT DLP: 734 mGycm Automated exposure control for dose reduction was used. CONTRAST: CT scan of the chest is performed with IV Contrast, patient injected with 100 mL of Isovue 300. FINDINGS: LUNGS: There are a few scattered sub the 4 mm pulmonary nodules identified: 2 on the right and 3 on t he left. Follow-up in one year is advised. There is no pleural effusion or pneumothorax seen. The tr acheobronchial tree is patent. MEDIASTINUM: There are no greater than 1 cm hilar or mediastinal lymph nodes. No pericardial effusi on is seen. Thoracic aorta is of normal caliber. The heart is not enlarged. UPPER ABDOMEN: No significant abnormality appreciated. OTHER: Small hiatal hernia seen. IMPRESSION: 1. No evidence for distinct mass or abnormality about the sternum. 2. A few scattered sub-4 mm pulmonary nodules. One year follow-up is recommended.
== END | disposition home or self-care (01) ==
LOC: RADCTMAIN 13:02
PROVIDERS: ATTEND Surgery
DX: R91.8 Other nonspecific abnormal finding of lung field (principal)
CPT/HCPCS: 82565; 84520; 71260; 36415; Q9967

== ENCOUNTER → 2021-06-23 | Outpatient (CLI) | payer MEDICARE ==
--- NOTE | 2021-06-23 15:01 | MM ---
Reason for exam: additional evaluation requested from prior study. Last mammogram was performed 1 year ago. History: Patient is postmenopausal and had first child at age 31. US breast aspiration single LT of the left breast, June 16, 2020. Benign MG stereo VAD BX LT of the left breast, June 27, 2019. Took hormonal contraceptives for 10 years. Physical Findings: Nurse did not find any significant physical abnormalities on exam. MG 3D Diag Mammo W/Cad MARCELINA Bilateral CC and MLO view(s) were taken. Prior study comparison: June 08, 2020, bilateral MG 3d diag mammo w/cad MARCELINA. December 05, 2019, left breast MG 3d diag mammo w/cad LT. The breast tissue is heterogeneously dense. This may lower the sensitivity of mammography. Previous mammotome biopsy in the left breast. There is no discrete abnormality including area of concern. No significant new findings when compared with previous films. These results were verbally communicated with the patient and result sheet given to the patient on 06/23/21. ASSESSMENT: Incomplete: need additional imaging evaluation, BI-RAD 0 RECOMMENDATION: Ultrasound of the left breast.
--- NOTE | 2021-06-23 15:02 | USB ---
Reason for exam: additional evaluation requested from abnormal screening. History: Patient is postmenopausal and had first child at age 31. US breast aspiration single LT of the left breast, June 16, 2020. Benign MG stereo VAD BX LT of the left breast, June 27, 2019. Took hormonal contraceptives for 10 years. US Breast Limited LT Left limited breast ultrasound including focal area of concern, retroareolar and axilla demonstrates a 0.3 x 0.2 x 0.2cm oval, cystic lesion at 2 o'clock. These results were verbally communicated with the patient and result sheet given to the patient on 06/23/21. ASSESSMENT: Benign, BI-RAD 2 RECOMMENDATION: Routine screening mammogram of both breasts in 1 year.
== END | disposition home or self-care (01) ==
LOC: RADMAMWWP 13:29
PROVIDERS: ATTEND Surgery
DX: R92.8 Other abnormal and inconclusive findings on diagnostic imaging of breast (principal); Z78.0 Asymptomatic menopausal state
CPT/HCPCS: 77066; 76642; G0279; 77062

== ENCOUNTER → 2021-06-30 | Outpatient (CLI) | payer MEDICARE ==
[2021-06-30 11:50] VITALS: BP 131/85; PULSE 72; RESP 18; TEMP 98.1
--- NOTE | 2021-06-30 12:10 | P.PN ---
Subjective Progress Note Date: 06/30/21 Principal diagnosis: fibrocystic breast changes fibrocystic breast changes Yary is a 66-year-old white female who presents for breast examination. She underwent a bilateral mammogram in April 2019 this revealed some calcifications in the left breast for which additional views were recommended. Additional views were obtained on . This revealed indeterminate calcifications in the upper quadrant central position of the left breast. These were considered suspicious BIRADS 4 and stereotactic core biopsy was recommended. She underwent a stereo biopsy and [id number] this revealed benign adipose tissue and prominent course intraductal mineralization's were present in the specimen. This was felt to be concordant. The patient then had a bilateral mammogram in June 08, 2020 and an ultrasound was recommended of the left breast no lesions of concern were noted in the right breast. On ultrasound there was a cystic lesion for which aspiration/biopsy was recommended. This was attempted on and no evidence specimen was present. The patient was then recommended to undergo an ultrasound of the left breast in 6 months. This was performed and 6349 and felt to be benign. Follow-up in 6 months. She underwent a left breast mammogram on 06-23-21 which was incomplete and an ultrasound was recommended which was done on 06-23-21 this was benign BIRAD 2 and routine screening of both breast in 6 months recommended. The ;atient does not feel any lumps masses or nodules of concern in her breast. Family History: paternal grandmother: colon cancer Hormonal History: menarche: 10 , breast fed: no, age at : 31 menopause: 47 BCP: 3 years, hormones: none Past Surgical History: gallbladder rhinoplasty Medical History: none Social History: smoke: none alcohol: wine weekly drugs: none - Constitutional Constitutional: Denies chills, Denies fever - EENT Comment: retinal surgery, floater Eyes: denies blurred vision, denies pain Ears: deny: decreased hearing, tinnitus Ears, nose, mouth and throat: Denies headache, Denies sore throat - Breasts Breasts: bilateral: as per HPI - Cardiovascular Cardiovascular: Denies chest pain, Denies shortness of breath - Respiratory Respiratory: Denies cough, - Gastrointestinal Gastrointestinal: Denies abdominal pain, Denies diarrhea, Denies nausea, Denies vomiting - Genitourinary (Female) Genitourinary: Denies dysuria, Denies hematuria - Menstruation Menstruation: Reports postmenopausal - Musculoskeletal Musculoskeletal: Denies myalgias - Integumentary Integumentary: Denies pruritus, Denies rash - Neurological Neurological: Denies numbness, Denies weakness - Psychiatric Psychiatric: Denies anxiety, Denies depression - Endocrine Endocrine: Denies fatigue, Denies weight change - Hematologic/Lymphatic Comment: none - Allergic/Immunologic Allergic/Immunologic: Reports as per HPI Objective - Vital Signs Vital signs: Vital Signs Temp 98.1 F 06/30/21 11:45 Pulse 72 06/30/21 11:45 Resp 18 06/30/21 11:45 BP 131/85 06/30/21 11:45 Pulse Ox 99 06/30/21 11:45 Intake & Output 06/29/21 06/30/21 06/30/21 18:59 06:59 18:59 Weight 95.254 kg - Exam BMI 34.9 - Constitutional General appearance: Present: cooperative - EENT Eyes: Present: EOMI ENT: Present: hearing grossly normal - Neck Neck: Present: normal ROM - Respiratory Respiratory: bilateral: CTA - Cardiovascular Rhythm: regular Heart sounds: normal: S1, S2 - Gastrointestinal General gastrointestinal: Present: soft - Musculoskeletal Musculoskeletal: Present: gait normal - Psychiatric Psychiatric: Present: A&O x's 3, appropriate affect, intact judgment & insight - Additional findings Additional findings: Breast Exam: BRA: 44C inspection: bilateral grade 3 ptosis palpation: right breast: Positional exam fibrocystic changes no dominant masses or nodules of concern Right axilla: No adenopathy of concern Left breast: Multiple positional exam fibrocystic changes fullness in the lateral aspect with no discrete dominant mass or nodule of concern Left axilla: No adenopathy of concern The area of the sternum has some fullness which has been worked up with a computed tomography scan not showing any lesions of concern the computed tomography scan did show a few scattered sub-for millimeter pulmonary nodules and a repeat computed tomography scan in 1 year was recommended this was done and 620 221. Assessment and Plan Assessment: Impression: Asymmetric breasts left slightly larger than the right with slight fullness in the lateral aspect of the left breast Fibrocystic breast changes Follow this over the sternal area greatest towards the area of the left chest which has been worked up and has not had anything noted on computed tomography scan Plan: Computed tomography scan in 6 months with a physician exam at that time Repeat bilateral mammogram in 6 months Patient to keep close surveillance on the left breast upper outer quadrant if this changes she will call us sooner at this time there is nothing which would warrant biopsy CC: Dr. Mohamud
== END ==
LOC: WWCWWP 11:24
PROVIDERS: ATTEND Surgery
DX: N60.12 Diffuse cystic mastopathy of left breast (principal); N60.11 Diffuse cystic mastopathy of right breast; N64.89 Other specified disorders of breast

== ENCOUNTER → 2022-01-05 | Outpatient (CLI) | payer MEDICARE ==
[2022-01-05 08:30] LABS: African American GFR (CKD) >90 (>60 ml/min/1.73 sqM); Blood Urea Nitrogen 15 mg/dL (7-17); Non-African American GFR(CKD) 88 (>60 ml/min/1.73 sqM)
--- NOTE | 2022-01-05 12:55 | CT ---
EXAMINATION TYPE: CT chest w con DATE OF EXAM: 01/05/2022 COMPARISON: CT dated 01/04/2021 HISTORY: Prominence over sternum, follow up CT DLP: 458.1 mGycm Automated exposure control for dose reduction was used. TECHNIQUE: CT scan of the chest is performed with IV Contrast, patient injected with 100 mL of Isovue 300. FINDINGS: LUNGS: Scattered bilateral pulmonary nodules measuring up to 4 mm, stable compared to the previous CT scan consistent with benign nodules and requiring no further follow-up. Grossly unremarkable lungs o therwise. Patent trachea and main bronchi. No pleural effusion. MEDIASTINUM: There are no greater than 1 cm hilar or mediastinal lymph nodes. Coronary arterial calci fications. No gross cardiomegaly. No pericardial effusion is seen. OTHER: Small sliding hiatal hernia. Previous cholecystectomy. Questionable hepatic steatosis. No agg ressive bone lesion. Asymmetrical focal anterior bulge of the inferior left costosternal junction as compared to the right-sided one. This could represent the clinically felt prominence. IMPRESSION: Stable bilateral pulmonary nodules measuring up to 4 mm consistent with benign nodules and require no further follow-up. No aggressive bone lesion. Other findings as described above.
== END | disposition home or self-care (01) ==
LOC: RADCTMAIN 07:52
PROVIDERS: ATTEND Surgery
DX: R91.8 Other nonspecific abnormal finding of lung field (principal)
CPT/HCPCS: 82565; 84520; 71260; 36415; Q9967

== ENCOUNTER → 2022-06-26 | Outpatient (CLI) | payer MEDICARE ==
--- NOTE | 2022-06-27 08:32 | MM ---
Reason for Exam: Screening (asymptomatic). Last screening mammogram was performed 12 month(s) ago. Patient History: Menarche at age 10. First Full-Term at age 31. Late child-bearing (after 30). Postmenopausal. Patient used Hormonal Contraceptives for 10 years. 06/16/2020, Cyst Aspiration on the Left side. 06/27/2019, Benign Core Biopsy on the left side. Risk Values: Marlene 5 year model risk: 3.1%. NCI Lifetime model risk: 9.7%. Prior Study Comparison: 12/05/2019 Left Diagnostic Mammogram, [facility]. 06/08/2020 Bilateral Diagnostic Mammogram, [facility]. 06/23/2021 Bilateral Diagnostic Mammogram, [facility]. Tissue Density: The breast tissue is heterogeneously dense. This may lower the sensitivity of mammography. Findings: Analyzed By CAD. There is no suspicious group of microcalcifications or new suspicious mass in either breast. Overall Assessment: Benign, BI-RAD 2 Management: Screening Mammogram of both breasts in 1 year. A clinical breast exam by your physician is recommended on an annual basis and results should be correlated with mammographic findings. Electronically signed and approved by: Hebert Villalpando M.D. Radiologis
== END | disposition home or self-care (01) ==
LOC: RADMAMWWP 08:32
PROVIDERS: ATTEND Surgery
DX: Z12.31 Encounter for screening mammogram for malignant neoplasm of breast (principal); Z78.0 Asymptomatic menopausal state; Z98.890 Other specified postprocedural states
CPT/HCPCS: 77063; 77067

== ENCOUNTER → 2022-06-30 | Outpatient (CLI) | payer MEDICARE ==
[2022-06-30 09:44] VITALS: BP 143/88; PULSE 87; RESP 17; TEMP 98.9
--- NOTE | 2022-06-30 10:03 | P.PN ---
Subjective Progress Note Date: 06/30/22 Principal diagnosis: fibrocystic breast changes fibrocystic breast changes Yary is a 67-year-old white female who was being followed for fibrocystic breast changes. She initially was seen after a bilateral mammogram in April 2019 which revealed some calcifications in the left breast leading to a stereotactic core biopsy. This was done on 1212 and was benign and concordant. She subsequently underwent a bilateral mammogram in May 2020 and an ultrasound was recommended of the left breast for which an aspiration biopsy was recommended. This was attempted on and aborted. The patient then had a follow-up left breast ultrasound in 6 months which was felt to be benign. The patient most recently has undergone a bilateral mammogram on [id number] which was benign BIRADS 2. She does not feel any dominant masses or nodules of concern in either breast. She underwent a computed tomography scan of the chest for sternal prominence on February 04. This revealed some asymmetric focal anterior bulge of the inferior left costosternal junction as compared to the right side. She has some stable bilateral pulmonary nodules measuring up to 4 mm. Which were felt to require no further follow-up. Family History: paternal grandmother: colon cancer Hormonal History: menarche: 10 , breast fed: no, age at : 31 menopause: 47 BCP: 3 years, hormones: none Past Surgical History: gallbladder rhinoplasty Medical History: none Social History: smoke: none alcohol: wine weekly drugs: none - Constitutional Constitutional: Denies chills, Denies fever - EENT Comment: retinal surgery, floater Eyes: denies blurred vision, denies pain Ears: deny: decreased hearing, tinnitus Ears, nose, mouth and throat: Denies headache, Denies sore throat - Breasts Breasts: bilateral: as per HPI - Cardiovascular Cardiovascular: Denies chest pain, Denies shortness of breath - Respiratory Respiratory: Denies cough, - Gastrointestinal Gastrointestinal: Denies abdominal pain, Denies diarrhea, Denies nausea, Denies vomiting - Genitourinary (Female) Genitourinary: Denies dysuria, Denies hematuria - Menstruation Menstruation: Reports postmenopausal - Musculoskeletal Musculoskeletal: Denies myalgias - Integumentary Integumentary: Denies pruritus, Denies rash - Neurological Neurological: Denies numbness, Denies weakness - Psychiatric Psychiatric: Denies anxiety, Denies depression - Endocrine Endocrine: Denies fatigue, Denies weight change - Hematologic/Lymphatic Comment: none - Allergic/Immunologic Allergic/Immunologic: Reports as per HPI Objective - Vital Signs Vital signs: Vital Signs Temp 98.9 F 06/30/22 09:42 Pulse 87 06/30/22 09:42 Resp 17 06/30/22 09:42 BP 143/88 06/30/22 09:42 Pulse Ox 99 06/30/22 09:42 FiO2 Intake & Output 06/29/22 06/30/22 06/30/22 18:59 06:59 18:59 Weight 94.347 kg - Constitutional General appearance: Present: cooperative - EENT Eyes: Present: EOMI ENT: Present: hearing grossly normal - Neck Neck: Present: normal ROM - Respiratory Respiratory: bilateral: CTA - Cardiovascular Rhythm: regular Heart sounds: normal: S1, S2 - Gastrointestinal General gastrointestinal: Present: soft - Integumentary Integumentary: Present: normal turgor - Musculoskeletal Musculoskeletal: Present: gait normal - Psychiatric Psychiatric: Present: A&O x's 3, appropriate affect, intact judgment & insight - Additional findings Additional findings: Breast Exam: BRA: 42D inspection: bilateral grade 3 ptosis, prominence chest wall at the sternoclavicular junction on the left Palpation: Right breast: Multi-positional exam fibrocystic changes no dominant masses or nodules of concern Right axilla: No adenopathy of concern Left breast: Multi-positional exam fibrocystic changes increased prominence upper outer quadrant area which has been persistent chronically Left axilla: No adenopathy of concern Assessment and Plan Assessment: Impression: Bilateral mammogram [id number] benign BIRADS 2 Computed tomography scan 620 322 nothing which would warrant further intervention Plan: Bilateral mammogram 1 year with physician exam at that time Patient to follow up sooner any questions or concerns CC: Dr. Toussaint
== END ==
LOC: WWCWWP 09:34
PROVIDERS: ATTEND Surgery
DX: Z12.31 Encounter for screening mammogram for malignant neoplasm of breast (principal)

== ENCOUNTER → 2023-06-28 | Outpatient (CLI) | payer MEDICARE ==
--- NOTE | 2023-06-29 09:04 | MM ---
Reason for Exam: Screening (asymptomatic). Last screening mammogram was performed 12 month(s) ago. Patient History: Menarche at age 10. First Full-Term at age 31. Late child-bearing (after 30). Postmenopausal. Patient used Hormonal Contraceptives for 10 years. 06/16/2020, Cyst Aspiration on the Left side. 06/27/2019, Benign Core Biopsy on the left side. Risk Values: Marlene 5 year model risk: 3.1%. NCI Lifetime model risk: 9.3%. Prior Study Comparison: 06/08/2020 Bilateral Diagnostic Mammogram, [facility]. 06/23/2021 Bilateral Diagnostic Mammogram, [facility]. 06/26/2022 Bilateral MG 3D screening mammo w/cad, [facility]. Tissue Density: The breast tissue is heterogeneously dense. This may lower the sensitivity of mammography. Findings: Analyzed By CAD. There is no suspicious group of microcalcifications or new suspicious mass. Overall Assessment: Negative, BI-RAD 1 Management: Screening Mammogram of both breasts in [address] [facility] will attempt to contact patient to return for supplemental views and ultrasound if indicated. Patient should continue monthly self-breast exams. A clinical breast exam by your physician is recommended on an annual basis. This exam should not preclude additional follow-up of suspicious palpable abnormalities. Note on Marlene scores and lifetime risk: 1. A Marlene score greater than 3% is considered moderate risk. If this is the case, consider specialist referral to assess eligibility for a risk reducing agent. 2. If overall lifetime risk for the development of breast cancer is 20% or higher, the patient may qualify for future screening with alternating mammogram and breast MRI. Electronically signed and approved by: Joe Santacruz DO
== END | disposition home or self-care (01) ==
LOC: RADMAMWWP 08:17
PROVIDERS: ATTEND Surgery
DX: Z12.31 Encounter for screening mammogram for malignant neoplasm of breast (principal); Z78.0 Asymptomatic menopausal state
CPT/HCPCS: 77063; 77067

== ENCOUNTER → 2023-07-05 | Outpatient (CLI) | payer MEDICARE ==
--- NOTE | 2023-07-05 13:50 | USB ---
Reason for Exam: Clinical finding. Patient History: Menarche at age 10. First Full-Term at age 31. Late child-bearing (after 30). Postmenopausal. Patient used Hormonal Contraceptives for 10 years. 06/16/2020, Cyst Aspiration on the Left side. 06/27/2019, Benign Core Biopsy on the left side. Risk Values: Marlene 5 year model risk: 3.1%. Marlene 5 year model risk: 3.1%. NCI Lifetime model risk: 9.3%. NCI Lifetime model risk: 9.3%. Technique: Method: Targeted. Prior Study Comparison: 12/16/2020 Left Diagnostic Ultrasound, [facility]. 06/23/2021 Bilateral Diagnostic Mammogram, [facility]. 06/23/2021 Left Diagnostic Ultrasound, [facility]. 06/26/2022 Bilateral MG 3D screening mammo w/cad, [facility]. 06/28/2023 Bilateral MG 3D screening mammo w/cad, [facility]. Findings: The upper outer quadrant of the left breast, the axilla of the left breast and the retroareolar of the left breast were scanned. Targeted ultrasound left breast upper outer quadrant at the patient directed palpable site. Scanning from 12-3 o'clock including the subareolar region and axilla. Scattered dense tissue is present. No solid or cystic lesion or axillary lymphadenopathy. Overall Assessment: Negative, BI-RAD 1 Management: Screening Mammogram of both breasts in 1 year. Further clinical management for any suspicious palpable abnormality. Patient should continue monthly self breast exams. If any palpable area continues to enlarge, the patient could be rescanned. Results were given to the patient verbally at the time of exam. Electronically signed and approved by: Kayli Gaming M.D. Radiologist
== END | disposition home or self-care (01) ==
LOC: RADUSWWP 11:53
PROVIDERS: ATTEND Surgery
DX: N63.20 Unspecified lump in the left breast, unspecified quadrant (principal); Z78.0 Asymptomatic menopausal state

== ENCOUNTER → 2023-07-05 | Outpatient (CLI) | payer MEDICARE ==
[2023-07-05 11:47] VITALS: BP 147/79; PULSE 72; RESP 18; TEMP 97.6
--- NOTE | 2023-07-05 11:49 | P.PN ---
Subjective Progress Note Date: 07/05/23 Principal diagnosis: fibrocystic breast changes fibrocystic breast changes Yary is a 68-year-old white female who was being followed for fibrocystic breast changes. She initially was seen after a bilateral mammogram in April 2019 which revealed some calcifications in the left breast leading to a stereotactic core biopsy. This was done on 1212 and was benign and concordant. She subsequently underwent a bilateral mammogram in May 2020 and an ultrasound was recommended of the left breast for which an aspiration biopsy was recommended. This was attempted on and aborted. The patient then had a follow-up left breast ultrasound in 6 months which was felt to be benign. The patient most recently has undergone a bilateral mammogram on which was benign BIRADS 1. She does not feel any dominant masses or nodules of concern in either breast. She has had a 30 pound intentional weight loss over the last year. She underwent a computed tomography scan of the chest for sternal prominence on February 04. This revealed some asymmetric focal anterior bulge of the inferior left costosternal junction as compared to the right side. She has some stable bilateral pulmonary nodules measuring up to 4 mm. Which were felt to require n o further follow-up. Family History: paternal grandmother: colon cancer Hormonal History: menarche: 10 , breast fed: no, age at : 31 menopause: 47 BCP: 3 years, hormones: none Past Surgical History: gallbladder rhinoplasty Medical History: none Social History: smoke: none alcohol: wine weekly drugs: none - Constitutional Constitutional: Denies chills, Denies fever - EENT Comment: retinal surgery, floater Eyes: denies blurred vision, denies pain Ears: deny: decreased hearing, tinnitus Ears, nose, mouth and throat: Denies headache, Denies sore throat - Breasts Breasts: bilateral: as per HPI - Cardiovascular Cardiovascular: Denies chest pain, Denies shortness of breath - Respiratory Respiratory: Denies cough, - Gastrointestinal Gastrointestinal: Denies abdominal pain, Denies diarrhea, Denies nausea, Denies vomiting - Genitourinary (Female) Genitourinary: Denies dysuria, Denies hematuria - Menstruation Menstruation: Reports postmenopausal - Musculoskeletal Musculoskeletal: Denies myalgias - Integumentary Integumentary: Denies pruritus, Denies rash - Neurological Neurological: Denies numbness, Denies weakness - Psychiatric Psychiatric: Denies anxiety, Denies depression - Endocrine Endocrine: Denies fatigue, Denies weight change - Hematologic/Lymphatic Comment: none - Allergic/Immunologic Allergic/Immunologic: Reports as per HPI Objective - Vital Signs Vital signs: Vital Signs Temp 97.6 F 07/05/23 11:30 Pulse 72 07/05/23 11:30 Resp 18 07/05/23 11:30 BP 147/79 07/05/23 11:30 Pulse Ox 97 07/05/23 11:30 FiO2 Intake & Output 07/04/23 07/05/23 07/05/23 18:59 06:59 18:59 Weight 85.729 kg - Constitutional General appearance: Present: cooperative - EENT Eyes: Present: EOMI ENT: Present: hearing grossly normal - Neck Neck: Present: normal ROM - Respiratory Respiratory: bilateral: CTA - Cardiovascular Rhythm: regular Heart sounds: normal: S1, S2 - Integumentary Integumentary: Present: normal turgor - Musculoskeletal Musculoskeletal: Present: gait normal - Psychiatric Psychiatric: Present: A&O x's 3, appropriate affect, intact judgment & insight - Additional findings Additional findings: Breast Exam: BRA: 42D inspection: bilateral grade 3 ptosis, prominence chest wall at the sternoclavicular junction on the left Palpation: Right breast: Multi-positional exam fibrocystic changes no dominant masses or nodules of concern Right axilla: No adenopathy of concern Left breast: Multi-positional exam fibrocystic changes increased prominence upper outer quadrant area which has been persistent chronically; on todays examination I again noted increased prominence upper outer quadrant left breast which is chronic in nature Left axilla: No adenopathy of concern Assessment and Plan Assessment: Impression: Bilateral mammogram 1214-23 benign BIRADS 1 Computed tomography scan 08318 nothing which would warrant further intervention Plan: Ultrasound upper outer quadrant left breast follow up after this is done Bilateral mammogram 1 year with physician exam at that time Patient to follow up sooner any questions or concerns CC: Dr. Mohamud
== END ==
LOC: WWCWWP 11:21
PROVIDERS: ATTEND Surgery
DX: Z12.31 Encounter for screening mammogram for malignant neoplasm of breast (principal); N60.12 Diffuse cystic mastopathy of left breast

== ENCOUNTER → 2024-06-30 | Outpatient (CLI) | payer MEDICARE ==
--- NOTE | 2024-07-01 15:00 | MM ---
Reason for Exam: Screening (asymptomatic). Last screening mammogram was performed 12 month(s) ago. Patient History: Menarche at age 10. First Full-Term at age 31. Late child-bearing (after 30). Patient used Hormonal Contraceptives for 10 years. 06/16/2020, Cyst Aspiration on the Left side. 06/27/2019, Benign Core Biopsy on the left side. Risk Values: Marlene 5 year model risk: 3.1%. NCI Lifetime model risk: 8.9%. Prior Study Comparison: 06/23/2021 Bilateral Diagnostic Mammogram, [facility]. 06/26/2022 Bilateral MG 3D screening mammo w/cad, [facility]. 06/28/2023 Bilateral MG 3D screening mammo w/cad, [facility]. Tissue Density: The breasts are heterogeneously dense, which may obscure small masses. Findings: Analyzed By CAD. Asymmetric density 12:00 position right breast 5 cm from the nipple. Additional views are recommended. No suspicious microcalcifications. Overall Assessment: Incomplete: need additional imaging evaluation, BI-RAD 0 Management: Diagnostic Mammogram of the right breast. . Patient should continue monthly self-breast exams. A clinical breast exam by your physician is recommended on an annual basis. This exam should not preclude additional follow-up of suspicious palpable abnormalities. Note on Marlene scores and lifetime risk: 1. A Marlene score greater than 3% is considered moderate risk. If this is the case, consider specialist referral to assess eligibility for a risk reducing agent. 2. If overall lifetime risk for the development of breast cancer is 20% or higher, the patient may qualify for future screening with alternating mammogram and breast MRI. [facility], , 07/01/2024 2:57 PM. Electronically signed and approved by: Hebert Villalpando M.D. Radiologis
== END | disposition home or self-care (01) ==
LOC: RADMAMWWP 14:26
PROVIDERS: ATTEND Surgery
DX: Z12.31 Encounter for screening mammogram for malignant neoplasm of breast (principal); R92.333 Mammographic heterogeneous density, bilateral breasts
CPT/HCPCS: 77063; 77067

== ENCOUNTER → 2024-07-04 | Outpatient (CLI) | payer MEDICARE ==
[2024-07-04 09:48] VITALS: BP 172/75; PULSE 74; RESP 17; TEMP 97.7
--- NOTE | 2024-07-04 10:07 | P.PN ---
Subjective Progress Note Date: 07/04/24 Principal diagnosis: fibrocystic breast disease Subjective Progress Note Date: 07/04/24 Principal diagnosis: fibrocystic breast changes Yary is a 69-year-old white female who was being followed for fibrocystic breast changes. She initially was seen after a bilateral mammogram in April 2019 which revealed some calcifications in the left breast leading to a stereotactic core biopsy. This was done on 1212 and was benign and concordant. She subsequently underwent a bilateral mammogram in May 2020 and an ultrasound was recommended of the left breast for which an aspiration biopsy was recommended. This was attempted on and aborted. The patient then had a follow-up left breast ultrasound in 6 months which was felt to be benign. The patient most recently has undergone a bilateral mammogram on which was benign BIRADS 0. A diagnostic right breast mammogram was recommended. She underwent a computed tomography scan of the chest for sternal prominence on February 04. This revealed some asymmetric focal anterior bulge of the inferior left costosternal junction as compared to the right side. She had some stable bilateral pulmonary nodules measuring up to 4 mm. Which were felt to require no further follow-up. Family History: paternal grandmother: colon cancer Hormonal History: menarche: 10 , breast fed: no, age at : 31 menopause: 47 BCP: 3 years, hormones: none Past Surgical History: gallbladder rhinoplasty left knee replacement Medical History: none Social History: smoke: none alcohol: wine weekly drugs: none - Constitutional Constitutional: Denies chills, Denies fever - EENT Comment: retinal surgery, floater Eyes: denies blurred vision, denies pain Ears: deny: decreased hearing, tinnitus Ears, nose, mouth and throat: Denies headache, Denies sore throat - Breasts Breasts: bilateral: as per HPI - Cardiovascular Cardiovascular: Denies chest pain, Denies shortness of breath - Respiratory Respiratory: Denies cough, - Gastrointestinal Gastrointestinal: Denies abdominal pain, Denies diarrhea, Denies nausea, Denies vomiting - Genitourinary (Female) Genitourinary: Denies dysuria, Denies hematuria - Menstruation Menstruation: Reports postmenopausal - Musculoskeletal Musculoskeletal: Denies myalgias - Integumentary Integumentary: Denies pruritus, Denies rash - Neurological Neurological: Denies numbness, Denies weakness - Psychiatric Psychiatric: Denies anxiety, Denies depression - Endocrine Endocrine: Denies fatigue, Denies weight change - Hematologic/Lymphatic Comment: none - Allergic/Immunologic Allergic/Immunologic: Reports as per HPI Objective - Vital Signs Vital signs: Vital Signs Temp 97.7 F 07/04/24 09:45 Pulse 74 07/04/24 09:45 Resp 17 07/04/24 09:45 BP 172/75 07/04/24 09:45 Pulse Ox 99 07/04/24 09:45 FiO2 Intake & Output 07/03/24 07/04/24 07/04/24 18:59 06:59 18:59 Weight 86.183 kg - Constitutional General appearance: Present: cooperative - EENT Eyes: Present: EOMI ENT: Present: hearing grossly normal - Neck Neck: Present: normal ROM - Respiratory Respiratory: bilateral: CTA - Cardiovascular Rhythm: regular Heart sounds: normal: S1, S2 - Integumentary Integumentary: Present: normal turgor - Musculoskeletal Musculoskeletal: Present: gait normal - Psychiatric Psychiatric: Present: A&O x's 3, appropriate affect, intact judgment & insight - Additional findings Additional findings: Breast Exam: BRA: 42D inspection: bilateral grade 3 ptosis, prominence chest wall at the sternoclavicular junction on the left Palpation: Right breast: Multi-positional exam fibrocystic changes no dominant masses or nodules of concern Right axilla: No adenopathy of concern Left breast: Multi-positional exam fibrocystic changes increased prominence upper outer quadrant area which has been persistent chronically; on todays examination I again noted increased prominence upper outer quadrant left breast which is chronic in nature Left axilla: No adenopathy of concern Assessment and Plan Assessment: Impression: Bilateral mammogram BIRAD 0; diagnostic mammogram Breast diagnostic mammogram done in 07-04-2024 Verbal report repeat right breast mammogram in 6 months Plan: Right breast diagnostic mammogram 6 months with appointment at that time Patient to follow-up sooner any questions or concerns Bilateral mammogram in 1 year CC: Dr. Mohamud
== END ==
LOC: WWCWWP 09:05
PROVIDERS: ATTEND Surgery
DX: R92.8 Other abnormal and inconclusive findings on diagnostic imaging of breast (principal); N60.12 Diffuse cystic mastopathy of left breast

== ENCOUNTER → 2024-07-04 | Outpatient (CLI) | payer MEDICARE ==
--- NOTE | 2024-07-04 13:56 | MM ---
Reason for Exam: Additional evaluation requested from abnormal screening. Last screening mammogram was performed less than 1 month ago. Patient History: Menarche at age 10. First Full-Term at age 31. Late child-bearing (after 30). Postmenopausal. Patient used Hormonal Contraceptives for 10 years. 06/16/2020, Cyst Aspiration on the Left side. 06/27/2019, Benign Core Biopsy on the left side. Risk Values: Marlene 5 year model risk: 3.1%. NCI Lifetime model risk: 8.9%. Prior Study Comparison: 04/05/2018 Left Diagnostic Mammogram, [facility]. 04/23/2019 Bilateral Screening Mammogram, [facility]. 05/12/2019 Left Diagnostic Mammogram, [facility]. 12/05/2019 Left Diagnostic Mammogram, [facility]. 06/08/2020 Bilateral Diagnostic Mammogram, [facility]. 06/23/2021 Bilateral Diagnostic Mammogram, [facility]. 06/26/2022 Bilateral MG 3D screening mammo w/cad, [facility]. 06/28/2023 Bilateral MG 3D screening mammo w/cad, [facility]. 07/05/2023 Left US breast limited LT, [facility]. 06/30/2024 Bilateral MG 3D screening mammo w/cad, [facility]. Tissue Density: Right: The breasts are heterogeneously dense, which may obscure small masses. Findings: Analyzed By CAD. No evidence for mass or distortion. No suspicious microcalcifications. Overall Assessment: Benign, BI-RAD 2 Management: Screening Mammogram of both breasts in 1 year. . Results were given to the patient verbally at the time of exam. Patient should continue monthly self-breast exams. A clinical breast exam by your physician is recommended on an annual basis. This exam should not preclude additional follow-up of suspicious palpable abnormalities. Note on Marlene scores and lifetime risk: 1. A Marlene score greater than 3% is considered moderate risk. If this is the case, consider specialist referral to assess eligibility for a risk reducing agent. 2. If overall lifetime risk for the development of breast cancer is 20% or higher, the patient may qualify for future screening with alternating mammogram and breast MRI. [facility], , 07/04/2024 1:53 PM. Electronically signed and approved by: Hebert Villalpando M.D. Radiologis
== END | disposition home or self-care (01) ==
LOC: RADMAMWWP 07:15
PROVIDERS: ATTEND Surgery
DX: R92.8 Other abnormal and inconclusive findings on diagnostic imaging of breast (principal); Z78.0 Asymptomatic menopausal state; R92.331 Mammographic heterogeneous density, right breast
CPT/HCPCS: 77065; G0279; 77061

== ENCOUNTER → 2025-01-06 | Outpatient (CLI) | payer MEDICARE ==
--- NOTE | 2025-01-06 09:58 | MM ---
Reason for Exam: Follow-up at short interval from prior study. Last screening mammogram was performed 6 month(s) ago. Patient History: Menarche at age 10. First Full-Term at age 31. Late child-bearing (after 30). Postmenopausal. Patient used Hormonal Contraceptives for 10 years. 06/16/2020, Cyst Aspiration on the Left side. 06/27/2019, Benign Core Biopsy on the left side. Risk Values: Marlene 5 year model risk: 3.1%. NCI Lifetime model risk: 8.9%. Prior Study Comparison: 06/28/2023 Bilateral MG 3D screening mammo w/cad, [facility]. 06/30/2024 Bilateral MG 3D screening mammo w/cad, [facility]. 07/04/2024 Right MG 3D work up w/cad RT, [facility]. Tissue Density: Right: The breasts are heterogeneously dense, which may obscure small masses. Findings: Analyzed By CAD. Stable fibroglandular tissue. No new suspicious masses, calcifications or distortions. Overall Assessment: Negative, BI-RAD 1 Management: Screening Mammogram of both breasts in 6 months. Results were given to the patient verbally at the time of exam. Patient should continue monthly self-breast exams. A clinical breast exam by your physician is recommended on an annual basis. This exam should not preclude additional follow-up of suspicious palpable abnormalities. Note on Marlene scores and lifetime risk: 1. A Marlene score greater than 3% is considered moderate risk. If this is the case, consider specialist referral to assess eligibility for a risk reducing agent. 2. If overall lifetime risk for the development of breast cancer is 20% or higher, the patient may qualify for future screening with alternating mammogram and breast MRI. [facility], , 01/06/2025 9:51 AM. Electronically signed and approved by: Joe Santacruz DO
== END | disposition home or self-care (01) ==
LOC: RADMAMWWP 09:30
PROVIDERS: ATTEND Surgery
DX: R92.8 Other abnormal and inconclusive findings on diagnostic imaging of breast (principal); R92.331 Mammographic heterogeneous density, right breast; Z92.0 Personal history of contraception; Z78.0 Asymptomatic menopausal state
CPT/HCPCS: 77065; G0279; 77061

== ENCOUNTER → 2025-02-06 | Outpatient (CLI) | payer MEDICARE ==
[2025-02-06 10:51] VITALS: BP 162/72; PULSE 68; RESP 17; TEMP 98.3
--- NOTE | 2025-02-06 11:32 | P.PN ---
Subjective Progress Note Date: 02/06/25 Principal diagnosis: fibrocystic breast changes Subjective Progress Note Date: 02-06-25 Principal diagnosis: fibrocystic breast disease Yary is a 69-year-old white female who was being followed for fibrocystic breast changes. She initially was seen after a bilateral mammogram in April 2019 which revealed some calcifications in the left breast leading to a stereotactic core biopsy. This was done on 1212 and was benign and concordant. She subsequently underwent a bilateral mammogram in May 2020 and an ultrasound was recommended of the left breast for which an aspiration biopsy was recommended. This was attempted on and aborted. The patient then had a follow-up left breast ultrasound in 6 months which was felt to be benign. The patient most recently has undergone a bilateral mammogram on which was benign BIRADS 0. A diagnostic right breast mammogram was recommended, this was done on 07-04-24 and repeat right breast mammogram in 6 months. She underwent a computed tomography scan of the chest for sternal prominence on February 04. This revealed some asymmetric focal anterior bulge of the inferior left costosternal junction as compared to the right side. She had some stable bilateral pulmonary nodules measuring up to 4 mm. Which were felt to require no further follow-up. Right breast mammogram on 01-06-25 BIRAD 1 personally reviewed. She is not compl aining of any new lumps masses or nodules of concern in either breast Family History: paternal grandmother: colon cancer Hormonal History: menarche: 10 , breast fed: no, age at : 31 menopause: 47 BCP: 3 years, hormones: none Past Surgical History: gallbladder rhinoplasty left knee replacement Medical History: none Social History: smoke: none alcohol: wine weekly drugs: none - Constitutional Constitutional: Denies chills, Denies fever - EENT Comment: retinal surgery, floater Eyes: denies blurred vision, denies pain Ears: deny: decreased hearing, tinnitus Ears, nose, mouth and throat: Denies headache, Denies sore throat - Breasts Breasts: bilateral: as per HPI - Cardiovascular Cardiovascular: Denies chest pain, Denies shortness of breath - Respiratory Respiratory: Denies cough, - Gastrointestinal Gastrointestinal: Denies abdominal pain, Denies diarrhea, Denies nausea, Denies vomiting - Genitourinary (Female) Genitourinary: Denies dysuria, Denies hematuria - Menstruation Menstruation: Reports postmenopausal - Musculoskeletal Musculoskeletal: Denies myalgias - Integumentary Integumentary: Denies pruritus, Denies rash - Neurological Neurological: Denies numbness, Denies weakness - Psychiatric Psychiatric: Denies anxiety, Denies depression - Endocrine Endocrine: Denies fatigue, Denies weight change - Hematologic/Lymphatic Comment: none - Allergic/Immunologic Allergic/Immunologic: Reports as per HPI Objective - Vital Signs Vital signs: Vital Signs Temp 98.3 F 02/06/25 10:49 Pulse 68 02/06/25 10:49 Resp 17 02/06/25 10:49 BP 162/72 02/06/25 10:49 Pulse Ox 98 02/06/25 10:49 FiO2 Intake & Output 02/05/25 02/06/25 02/06/25 18:59 06:59 18:59 Weight 83.915 kg - Constitutional General appearance: Present: cooperative - EENT Eyes: Present: EOMI ENT: Present: hearing grossly normal - Neck Neck: Present: normal ROM - Respiratory Respiratory: bilateral: CTA - Cardiovascular Rhythm: regular Heart sounds: normal: S1, S2 - Integumentary Integumentary: Present: normal turgor - Musculoskeletal Musculoskeletal: Present: gait normal - Psychiatric Psychiatric: Present: A&O x's 3, appropriate affect, intact judgment & insight - Additional findings Additional findings: Breast Exam: BRA: 42D inspection: bilateral grade 3 ptosis, prominence chest wall at the sternoclavicular junction on the left Palpation: Right breast: Multi-positional exam fibrocystic changes no dominant masses or nodules of concern Right axilla: No adenopathy of concern Left breast: Multi-positional exam fibrocystic changes increased prominence upper outer quadrant area which has been persistent chronically; on todays examination I again noted increased prominence upper outer quadrant left breast which is chronic in nature Left axilla: No adenopathy of concern Assessment and Plan Assessment: Impression: Bilateral mammogram BIRAD 0; diagnostic mammogram Breast diagnostic mammogram done in 07-04-2024 repeat right breast mammogram; 01-06-25 BIRAD 1 personally reviewed Plan: Bilateral mammogram in June 2025 with appointment Patient to follow-up sooner any questions or concerns CC: Dr. Mohamud
== END ==
LOC: WWCWWP 10:40
PROVIDERS: ATTEND Surgery
DX: N60.19 Diffuse cystic mastopathy of unspecified breast (principal)